=== PATIENT | female | born 1960 | race Hispanic/Latino ===

== ENCOUNTER 2017-10-16 20:58 | Emergency (ER) | payer MEDICARE ==
[2017-10-16 22:01] VITALS: BP 147/96
[2017-10-16 22:14] LABS: Mean Corpuscular HGB Conc 36 % (30-34); Mean Corpuscular Hemoglobin 34 pg (28-32); Mean Corpuscular Volume 94 fl (79-97); Platelet Count 311 K/mm3 (140-440); Red Blood Count 4.24 M/mm3 (3.65-5.03); Red Cell Distribution Width 14.9 % (13.2-15.2)
[2017-10-16 22:16] LABS: Hematocrit 39.8 % (30.3-42.9); Hemoglobin 14.3 gm/dl (10.1-14.3)
[2017-10-16 22:41] LABS: BUN/Creatinine Ratio 14; Blood Urea Nitrogen 10 mg/dL (7-17); Calcium 9.4 mg/dL (8.4-10.2); Hemolysis Index 6
[2017-10-16 22:47] LABS: Basophils % (Manual) 0 % (0.0-1.8); Eosinophils % (Manual) 0 % (0.0-4.3); RBC Morphology Normal; Total Cells Counted 100
[2017-10-16 23:12] LABS: Bilirubin,Urine NEG (Negative); Blood,Urine NEG (Negative); Color,Urine Yellow (Yellow); Hyaline Casts,Urine 1 /LPF; Mucus,Urine FEW /HPF; Protein,Urine <15 mg/dL mg/dL (Negative); Urobilinogen,Urine < 2.0 mg/dL (<2.0)
[2017-10-16 23:18] LABS: Amphetamine Screen,Urine PRESUMPTIVE NEGATIVE; Benzodiazepines Screen,Urine PRESUMPTIVE NEGATIVE; Cannabinoid Screen,Urine PRESUMPTIVE NEGATIVE; Cocaine Screen,Urine PRESUMPTIVE NEGATIVE; Methadone Screen,Urine PRESUMPTIVE NEGATIVE; Opiate Screen,Urine PRESUMPTIVE NEGATIVE
[2017-10-17] MEDS ORDERED: ZOFRAN ODT PO ONE (00:40)
[2017-10-17] MEDS ORDERED: ZOFRAN ODT ONE (00:46)
[2017-10-17] MEDS ORDERED: TYLENOL PO ONE (01:05)
[2017-10-17] MEDS ORDERED: BENTYL PO ONE (01:05)
[2017-10-17] MEDS ORDERED: CATAPRES PO ONE (01:05)
--- NOTE | 2017-10-17 02:04 | Emergency Department Report ---
ED Medical Clearance HPI - General Chief complaint: Medical Clearance Stated complaint: MEDICAL CLEARANCE Time Seen by Provider: 10/17/17 00:55 Source: patient, EMS Mode of arrival: Ambulatory - History of Present Illness Initial comments: H/o narcotic abuse. Last used today. Presents for medical clearance prior to going to [place]. She is starting to feel a little anxious/nauseous. No SI/HI/ AVH. Allergies/Adverse reactions: Allergies Allergy/AdvReac Type Severity Reaction Status Date / Time guaifenesin Allergy Rash Verified 10/16/17 21:56 morphine Allergy Rash Verified 10/16/17 21:56 Poultry Allergy Rash Verified 10/16/17 21:56 tramadol [From Ultram] Allergy Rash Verified 10/16/17 21:56 ED Review of Systems ROS: Stated complaint: MEDICAL CLEARANCE Other details as noted in HPI Comment: All other systems reviewed and negative Gastrointestinal: abdominal pain, nausea Psychiatric: anxiety ED Past Medical Hx - Past Medical History Previous Medical History?: Yes Hx COPD: Yes Additional medical history: Hep C, substance abuse - Surgical History Past Surgical History?: Yes Hx Cholecystectomy: Yes Additional Surgical History: hysterectomy, tonsils adnoids - Social History Smoking Status: Current Every Day Smoker Substance Use Type: Other ED Physical Exam - General Limitations: No Limitations General appearance: alert, in no apparent distress - Head Head exam: Present: atraumatic, normocephalic - Eye Eye exam: Present: normal appearance - ENT ENT exam: Present: mucous membranes moist - Neck Neck exam: Present: normal inspection - Respiratory Respiratory exam: Present: normal lung sounds bilaterally. Absent: respiratory distress - Cardiovascular Cardiovascular Exam: Present: regular rate, normal rhythm. Absent: systolic murmur, diastolic murmur, rubs, gallop - GI/Abdominal GI/Abdominal exam: Present: soft, tenderness (mild generalized), normal bowel sounds. Absent: guarding, rebound, rigid - Extremities Exam Extremities exam: Present: normal inspection - Back Exam Back exam: Present: normal inspection - Neurological Exam Neurological exam: Present: alert, oriented X3 - Psychiatric Psychiatric exam: Present: normal affect, normal mood - Skin Skin exam: Present: warm, dry, intact, normal color. Absent: rash ED Course Vital Signs 10/16/17 10/17/17 10/17/17 21:56 01:44 01:45 Temperature 98.1 F Pulse Rate 96 H 96 H Respiratory 18 18 Rate Blood Pressure 147/96 147/96 O2 Sat by Pulse 99 Oximetry ED Medical Decision Making - Lab Data Result diagrams: 10/16/17 22:03 10/16/17 22:03 - Medical Decision Making 57-year-old female with past history of narcotic abuse, COPD, hypertension and presents for medical clearance. Vital signs are stable. Patient is well- appearing. Lab work is unremarkable. She has been given clonidine/bentyl/ tylenol/zofran for her narcotic withdrawal symptoms. Patient is not meeting emergent criteria for psychiatric evaluation. In my opinion, patient is medically cleared to be evaluated and treated for substance abuse treatment. - Differential Diagnosis medical clearance ED Disposition Clinical Impression: Medical clearance for psychiatric admission Disposition: DC-01 TO HOME OR SELFCARE Is pt being admited?: No Does the pt Need Aspirin: No Condition: Stable Additional Instructions: You are medically cleared to go to [place] for substance abuse treatment. Referrals: PRIMARY CARE, [Primary Care Provider] - 3-5 Days
== END 2017-10-17 03:40 | disposition home or self-care (01) ==
LOC: ED 20:58
DX: F41.9 Anxiety disorder, unspecified (principal); F19.10 Other psychoactive substance abuse, uncomplicated; J44.9 Chronic obstructive pulmonary disease, unspecified; I10 Essential (primary) hypertension; F17.200 Nicotine dependence, unspecified, uncomplicated; Z86.19 Personal history of other infectious and parasitic diseases; Z90.710 Acquired absence of both cervix and uterus; Z88.5 Allergy status to narcotic agent; Z88.8 Allergy status to other drugs, medicaments and biological substances
CPT/HCPCS: 36415; 80048; 80307; 81001; 85007; 85025; 99283; G0480; 80320; Q0162